=== PATIENT | female | born 1950 | race Caucasian/White ===

== ENCOUNTER 2016-12-07 19:03 | Emergency (ER) | payer MEDICARE ==
[2016-12-07 19:58] VITALS: BP 141/58
--- NOTE | 2016-12-07 20:49 | UC ---
Skin Complaint HPI - HPI Summary HPI Summary: c/o today of worsening fungal rash on buttock, groin and under breast---patient c/o itching---rash has spread about 1/2 down abdomen from under breats extends 10 cm out of groin and now has new lesions on right wrist - History of Current Complaint Chief Complaint: UCSkin Time Seen by Provider: 12/07/16 20:38 Stated Complaint: RASH ALL OVER Hx Obtained From: Patient ?: No Onset/Duration: Gradual Onset, Lasting Weeks Timing: Constant Onset Severity: Moderate Current Severity: Severe Location: Diffuse Character: Pain, Redness Aggravating Factor(s): Nothing, Other - at one point nystop powder had helped but is no longer helping Alleviating Factor(s): Nothing Associated Signs & Symptoms: Positive: Negative - Allergy/Home Medications Allergies/Adverse Reactions: Allergies Allergy/AdvReac Type Severity Reaction Status Date / Time No Known Allergies Allergy Verified 12/07/16 19:58 Home Medications: Home Medications Famotidine TAB* [Pepcid 20 MG TAB*] 20 mg PO BID 12/07/16 [History Confirmed ] Multiple Vitamins W/ Minerals [Multivitamin Women 50+] 1 tab PO DAILY 12/07/16 [ History Confirmed 12/07/16] Probiotic Product [Acidophilus Probiotic] 1 tab PO DAILY 12/07/16 [History Confirmed 12/07/16] QUEtiapine TAB* [Seroquel TAB*] 25 mg PO DAILY 12/07/16 [History Confirmed 12/07] Quetiapine Fumarate [Quetiapine Fumarate ER] 300 mg PO DAILY 12/07/16 [History Confirmed 12/07/16] ValACYclovir (*) [Valtrex 500 mg (*)] 500 mg PO BID 12/07/16 [History Confirmed 12/07/16] clonazePAM TAB(*) [Klonopin TAB(*)] 0.5 mg PO QID 12/07/16 [History Confirmed ] Review of Systems Constitutional: Negative Skin: Rash Eyes: Negative ENT: Negative Respiratory: Negative Cardiovascular: Negative Gastrointestinal: Negative Genitourinary: Negative Motor: Negative Neurovascular: Negative Musculoskeletal: Negative Neurological: Negative Psychological: Negative Is Patient Immunocompromised?: No All Other Systems Reviewed And Are Negative: Yes PMH/Surg Hx/FS Hx/Imm Hx Previously Healthy: No Endocrine History: Diabetes - NIDDM -diet controlled GI/ History: Gastroesophageal Reflux Psychological History: Anxiety - Surgical History Surgical History: Yes Surgery Procedure, Year, and Place: hysterectomy, oopherectomy, myomectomy, hernia, cervical spine for arthritis. BILATERAL EYE SURGERY - Family History Known Family History: Positive: None - Social History Occupation: Disabled Lives: With Family Alcohol Use: Daily Alcohol Amount: 2 DRINKS A DAY Substance Use Type: None Smoking Status (MU): Never Smoked Tobacco Physical Exam Triage Information Reviewed: Yes Appearance: No Pain Distress, Ill-Appearing - chronic illness, Obese Vital Signs: Initial Vital Signs Temp 98.3 F 12/07/16 19:49 Pulse 90 12/07/16 19:49 Resp 18 12/07/16 19:49 BP 141/58 12/07/16 19:49 Pulse Ox 99 12/07/16 19:49 Vital Signs Reviewed: Yes Eye Exam: Normal Eyes: Positive: Conjunctiva Clear ENT Exam: Normal ENT: Positive: Normal ENT inspection, Hearing grossly normal. Negative: Nasal congestion, Nasal drainage, Trismus, Muffled/hoarse voice Neck exam: Normal Neck: Positive: Supple, Nontender, No Lymphadenopathy Respiratory Exam: Normal Respiratory: Positive: Chest non-tender, No respiratory distress, Decreased breath sounds, Other: - o2 dependent Cardiovascular Exam: Normal Cardiovascular: Positive: RRR, No Murmur, Pulses Normal, Brisk Capillary Refill Musculoskeletal Exam: Normal Musculoskeletal: Positive: Strength Intact, ROM Intact, Edema @ - chronic Neurological Exam: Normal Neurological: Positive: Alert, Muscle Tone Normal Psychological Exam: Normal Skin: Positive: rashes - fungal appearing rash as described Diagnostics - Laboratory Diagnostic Studies Completed/Ordered: baseline labs to start antifungal, fungal cultures of skin Course/Dx - Course Course Of Treatment: Grisifluvin, antifungal steroid cream, vistaril for itch-- cool compress follow with dermatology as planned - Differential Diagnoses - Skin Complaint Differential Diagnoses: Cellulitis, Eczema, Impetigo, Local Allergic Reaction, Tinea, Urticaria - Diagnoses Provider Diagnoses: progressive fungal infection bilateral breadt and groin , right arm and buttocks Discharge - Discharge Plan Condition: Stable Disposition: HOME Prescriptions: Clotrimazole/Betamethasone* [Lotrisone Cream*] 1 applic TOPICAL BID #1 tube Griseofulvin Microsize 500 mg PO DAILY #10 tab hydrOXYzine PAMOATE CAP* [Vistaril CAP*] 25 mg PO QID PRN #20 cap PRN Reason: itching Patient Education Materials: Antifungals (On the skin), Skin Yeast Infection ( ED) Referrals: Doc Lopez MD [Primary Care Provider] - Additional Instructions: Follow with Dr. Mccrary as planned on the
[2016-12-07] MEDS ORDERED: hydrOXYzine HCL TAB* 25 MG PO ONE (21:11)
[2016-12-08 12:22] LABS: Hematocrit 37 % (35-47); Hemoglobin 12.2 g/dl (12.0-16.0); Mean Corpuscular HGB Conc 33 g/dl (31-36); Mean Corpuscular Hemoglobin 32 pg (27-31); Mean Corpuscular Volume 96 fL (80-97); Mean Platelet Volume 10 um3 (7.4-10.4); Red Blood Count 3.86 10^6/ul (4.0-5.4); Red Cell Distribution Width 14 % (10.5-15); White Blood Count 9.1 10^3/ul (3.5-10.8)
[2016-12-08 12:28] LABS: Albumin 3.3 g/dL (3.2-5.2); BUN/Creatinine Ratio 16.7 (8-20); Calcium 9.1 mg/dL (8.6-10.3); EGFR African American 103.6 (>60); EGFR Non-African American 80.6 (>60); Globulin 2.8 g/dL (2-4); Potassium 4.2 mmol/L (3.5-5.0); Total Bilirubin 0.4 mg/dL (0.2-1.0); Total Protein 6.1 g/dL (6.4-8.9)
== END 2016-12-07 21:42 | disposition home or self-care (01) ==
LOC: UCCORT 19:03
DX: B36.9 Superficial mycosis, unspecified (principal); E11.9 Type 2 diabetes mellitus without complications; K21.9 Gastro-esophageal reflux disease without esophagitis; F41.9 Anxiety disorder, unspecified; E66.9 Obesity, unspecified
CPT/HCPCS: 36415; 80053; 85025; 87101; 99212; A9270-GY; G0463

== ENCOUNTER 2017-02-26 18:57 | Emergency (ER) | payer MEDICARE ==
[2017-02-26 19:15] VITALS: BP 181/102
--- NOTE | 2017-03-04 20:35 | UC ---
Lower Extremity/Ankle HPI - HPI Summary HPI Summary: 66 YEAR OLD FEMALE PRESENTS WITH SEVERE RIGHT LOWER LEG SWELLING/PAIN. I WILL SEND HER TO THE ER TO RULE OUT DVT. - History of Current Complaint Chief Complaint: UCLowerExtremity Stated Complaint: PAIN RIGHT SIDE Time Seen by Provider: 02/26/17 18:59 Hx Obtained From: Patient Onset/Duration: Sudden Onset Severity Initially: Severe Severity Currently: Severe Pain Intensity: 5 Pain Scale Used: 0-10 Numeric Aggravating Factor(s): Standing Alleviating Factor(s): Rest Able to Bear Weight: No - Allergies/Home Medications Allergies/Adverse Reactions: Allergies Allergy/AdvReac Type Severity Reaction Status Date / Time Gluten Meal AdvReac Diarrhea Verified 02/26/17 19:16 PMH/Surg Hx/FS Hx/Imm Hx Previously Healthy: Yes - Surgical History Surgical History: Yes Surgery Procedure, Year, and Place: hysterectomy, oopherectomy, Salpingectomy, myomectomy, hernia,. BILATERAL EYE SURGERY. D&C. ABDOMINAL LAPAROSCOPY - Family History Known Family History: Positive: None - Social History Alcohol Use: Daily Alcohol Amount: 2 DRINKS A DAY Substance Use Type: None Smoking Status (MU): Former Smoker When Did the Patient Quit Smoking/Using Tobacco: 2013 Review of Systems Constitutional: Negative Skin: Negative Eyes: Negative ENT: Negative Respiratory: Negative Cardiovascular: Negative Gastrointestinal: Negative Genitourinary: Negative Motor: Negative Neurovascular: Negative Musculoskeletal: Other: - RIGHT LOWER LEG PAIN/SWELLING Neurological: Negative Psychological: Negative All Other Systems Reviewed And Are Negative: Yes Physical Exam Triage Information Reviewed: Yes Vital Signs: Initial Vital Signs Temp 37.5 C 02/26/17 19:02 Pulse 107 02/26/17 19:02 Resp 16 02/26/17 19:02 BP 181/102 02/26/17 19:02 Pulse Ox 95 02/26/17 19:02 Vital Signs Reviewed: Yes Eye Exam: Normal ENT Exam: Normal Dental Exam: Normal Neck exam: Normal Neck: Positive: 1 Respiratory Exam: Normal Cardiovascular Exam: Normal Abdominal Exam: Normal Musculoskeletal: Positive: Other: - RLQ PAIN/SWELLING Neurological Exam: Normal Psychological Exam: Normal Skin Exam: Normal Lower Extremity Course/Dx - Differential Dx/Diagnosis Provider Diagnoses: RIGHT LOWER LEG PAIN/SWELLING Discharge - Discharge Plan Condition: Stable Disposition: OTHER Discharge Disposition Comment: PATIENT SUGGESTED TO GO TO THE ER TO RULE OUT DVT Patient Education Materials: Leg Pain (ED) Referrals: Doc Lopez MD [Primary Care Provider] - Additional Instructions: patient suggested to go to the er for intractable right lower leg pain.
== END 2017-02-26 19:22 ==
LOC: UCCORT 18:57
DX: M79.661 Pain in right lower leg (principal); R60.0 Localized edema; Z87.891 Personal history of nicotine dependence
CPT/HCPCS: 99211; G0463